=== PATIENT | male | born 1970 | race Caucasian/White ===

== ENCOUNTER 2021-12-27 22:54 | Inpatient (IN) ==
[2021-12-27] MEDS ORDERED: Tranexamic Acid 1,000 MG, Syringe CATH TIP 1 EACH in Water for inj. (sterile) 10 ML NS ONE (23:08)
[2021-12-27] MEDS ORDERED: Oxymetazoline Nasal SPRAY BOTTLE 15ML NS ONE (23:08)
[2021-12-27 23:53] LABS: Basophils # 0.1 K/mcL (0.0-0.2); Basophils % 0.5 %; Eosinophils # 0.1 K/mcL (0.0-0.6); Eosinophils % 0.5 %; Hematocrit 36.6 % (37.5-50.1); Immature Granulocytes % 0.4 % (0-4); Lymphocytes # 2.5 K/mcL (0.6-4.6); Lymphocytes % 22.4 %; Mean Corpuscular HGB Conc 34.2 g/dL (31.6-35.5); Mean Corpuscular Volume 93.6 fL (83.0-100.0); Mean Platelet Volume 10.7 fL (9.4-12.4); Monocytes # 0.9 K/mcL (0.0-1.3); Monocytes % 7.9 %; Neutrophils # 7.5 K/mcL (1.6-8.9); Platelet Count 210 K/mcL (140-400); Red Blood Count 3.91 M/mcL (4.19-5.50); Red Cell Distribution Width 13.3 % (11.5-14.5); Segmented Neutrophils % 68.3 %
[2021-12-28 00:01] LABS: Hemoglobin 12.5 g/dL (12.9-16.9)
[2021-12-28] MEDS ORDERED: Morphine Sulfate 2 MG/ML SYRINGE IVP ONE (00:10)
[2021-12-28] MEDS ORDERED: Oxymetazoline Nasal SPRAY BOTTLE 15ML NS ONE (00:57)
[2021-12-28] MEDS ORDERED: EPINEPHrine 1 MG/ML VIAL ONE ×2 (00:57→01:37)
[2021-12-28] MEDS ORDERED: *HR* Succinylcholine 200 MG/10 ML VIAL IVP ONE ×2 (00:59→02:56)
[2021-12-28] MEDS ORDERED: *HR* Propofol 200 MG/20 ML VIAL IVP ONE ×3 (00:59→04:14)
[2021-12-28] MEDS ORDERED: Lidocaine -MPF 2% 2 ML VIAL ONE (01:00)
[2021-12-28] MEDS ORDERED: *HR* Meperidine 25 MG/ML SYRINGE IVP PRN (01:02)
[2021-12-28] MEDS ORDERED: Albuterol 2.5 MG/3 ML NEBULIZER IH PRN (01:02)
[2021-12-28] MEDS ORDERED: *HR* FentaNYL (PF) 100 MCG/2 ML VIAL IVP PRN (01:02)
[2021-12-28] MEDS ORDERED: Lidocaine -MPF 4% 5 ML AMPUL ONE (01:02)
[2021-12-28] MEDS ORDERED: Ipratropium Neb 0.5 MG NEBULIZER IH PRN (01:02)
[2021-12-28] MEDS ORDERED: Ondansetron 4 MG/2 ML VIAL IVP PRN (01:02)
[2021-12-28] MEDS ORDERED: Racepinephrine Neb 0.5 ML VIAL IH PRN (01:02)
[2021-12-28] MEDS ORDERED: *HR* Labetalol 20 MG/4 ML SYRINGE IVP PRN (01:02)
[2021-12-28] MEDS ORDERED: Promethazine 6.25 MG in Water for inj. (sterile) 20 ML IVPB PRN (01:02)
[2021-12-28] MEDS ORDERED: *HR* OxyCODONE Immed Rel 5 MG TABLET PO PRN (01:02)
[2021-12-28] MEDS ORDERED: Famotidine 20 MG/2 ML VIAL ONE (01:16)
[2021-12-28] MEDS ORDERED: Ondansetron 4 MG/2 ML VIAL ONE (01:17)
[2021-12-28] MEDS ORDERED: *HR* Rocuronium Bromide 50 MG/5 ML VIAL ONE ×2 (01:48→02:58)
[2021-12-28] MEDS ORDERED: Sugammadex Sodium 200 MG/2 ML VIAL IV ONE ×2 (02:33→02:43)
[2021-12-28] MEDS ORDERED: Albumin Human 5% 12.5 GM/250 ML IV.SOLN ONE (03:17)
[2021-12-28 03:52] LABS: Basophils % 0.3 %; Eosinophils % 0.2 %; Hematocrit 31.7 % (37.5-50.1); Immature Granulocytes % 0.4 % (0-4); Lymphocytes # 1.2 K/mcL (0.6-4.6); Lymphocytes % 13.8 %; Mean Corpuscular HGB Conc 33.4 g/dL (31.6-35.5); Mean Corpuscular Hemoglobin 32.4 pg (28.0-33.3); Mean Corpuscular Volume 96.9 fL (83.0-100.0); Mean Platelet Volume 11.2 fL (9.4-12.4); Monocytes # 0.4 K/mcL (0.0-1.3); Monocytes % 4.9 %; Neutrophils # 7.2 K/mcL (1.6-8.9); Platelet Count 184 K/mcL (140-400); Red Blood Count 3.27 M/mcL (4.19-5.50); Red Cell Distribution Width 14.6 % (11.5-14.5); Segmented Neutrophils % 80.4 %; White Blood Count 8.9 K/mcL (4.3-11.1)
[2021-12-28 03:56] LABS: Hemoglobin 10.6 g/dL (12.9-16.9)
[2021-12-28] MEDS ORDERED: *HR* Midazolam HCl 2 MG/2 ML VIAL ONE (03:56)
[2021-12-28] MEDS ORDERED: Ketamine HCL *QUVA* 50mg (1mL) SYRINGE ONE (04:15)
[2021-12-28] MEDS ORDERED: *HR* Cisatracurium 10 MG/5 ML VIAL IV ONE (04:16)
[2021-12-28] MEDS ORDERED: Artificial Tears SOLN 15 ML BOTTLE BOTH EYES PRN (05:20)
[2021-12-28] MEDS ORDERED: Ibuprofen 400 MG TABLET PO PRN (05:21)
[2021-12-28] MEDS ORDERED: Acetaminophen 325 MG TABLET PO PRN (05:21)
[2021-12-28] MEDS ORDERED: Dexmedetomidine HCl 400 MCG/100 ML MLS IVC ONE (05:29)
[2021-12-28] MEDS: Dexmedetomidine HCl 400 MCG/100 ML MLS IVC SCH ×6 (05:32→23:16)
[2021-12-28] MEDS: Ringers Solution, Lactated 1,000 ML IVC SCH ×2 (05:32→18:12)
[2021-12-28 05:48] LABS: ABG Base Excess 0 mEq/L (-2 to 3); ABG HCO3 26 mEq/L (21-27); ABG Oxygen Saturation 96 % (95-98); ABG PCO2 48 mmHg (35-45); ABG PH 7.34 pH Units (7.32-7.45); ABG PO2 90 mmHg (85-104); ABG TCO2 27 mEq/L (20-26); Blood Gas Modality ASSIST CONTROL; Blood Gas VT 520 cc
[2021-12-28] MEDS ORDERED: Naloxone 0.4 MG/ML INJ IVP PRN (06:20)
[2021-12-28] MEDS: FentaNYL (PF) 1,000 MCG/100 ML IV.SOLN IVC SCH (06:41)
[2021-12-28] MEDS: Chlorhexidine Rinse 15 ML MOUTHWASH MM SCH ×2 (08:19→20:49)
[2021-12-28] MEDS: Artificial Tears SOLN 15 ML BOTTLE BOTH EYES SCH ×4 (08:19→20:52)
[2021-12-28] MEDS: Pantoprazole 40 MG VIAL IVP SCH (08:19)
[2021-12-28 09:28] LABS: Hematocrit 28.9 % (37.5-50.1); Hemoglobin 9.8 g/dL (12.9-16.9)
[2021-12-28] MEDS: Ampicillin/Sulbactam 3,000 MG in 0.9 % Sodium Chloride Mini Bag 100 ML IVPB SCH ×2 (11:36→18:11)
[2021-12-28 14:14] LABS: Hematocrit 27.7 % (37.5-50.1); Hemoglobin 9.4 g/dL (12.9-16.9)
[2021-12-28 19:22] LABS: Hematocrit 27.4 % (37.5-50.1); Hemoglobin 9.1 g/dL (12.9-16.9)
[2021-12-29] MEDS: Ampicillin/Sulbactam 3,000 MG in 0.9 % Sodium Chloride Mini Bag 100 ML IVPB SCH ×4 (00:01→18:01)
[2021-12-29] MEDS: Artificial Tears SOLN 15 ML BOTTLE BOTH EYES SCH ×4 (00:18→11:23)
[2021-12-29] MEDS: Dexmedetomidine HCl 400 MCG/100 ML MLS IVC SCH ×2 (03:43→08:15)
[2021-12-29 04:16] LABS: Blood Gas VT 520 cc; Mixed Venous Blood pCO2 44 mmHg (44-46); Mixed Venous Blood pH 7.38 pH Units (7.34-7.36); Mixed Venous Blood pO2 25 mmHg (35-45)
[2021-12-29] MEDS: Ringers Solution, Lactated 1,000 ML IVC SCH (06:31)
[2021-12-29 07:39] LABS: Immature Granulocytes % 0.6 % (0-4)
[2021-12-29 07:41] LABS: BUN/Creatinine Ratio 21 (6-26); Blood Urea Nitrogen 20 mg/dL (6-20); Calcium 8.4 mg/dL (8.6-10.3); Carbon Dioxide 28 mEq/L (23-29); Chloride 106 mEq/L (98-107); Glucose 147 mg/dL (70-105); Hemoglobin 8.5 g/dL (12.9-16.9); Immature Platelets 7.4 % (1.1-6.1); Lymphocytes # 1.2 K/mcL (0.6-4.6); Lymphocytes % 13.8 %; Mean Corpuscular Hemoglobin 33.2 pg (28.0-33.3); Mean Corpuscular Volume 97.7 fL (83.0-100.0); Mean Platelet Volume 11.4 fL (9.4-12.4); Monocytes # 0.6 K/mcL (0.0-1.3); Monocytes % 7.1 %; Neutrophils # 6.8 K/mcL (1.6-8.9); Osmolality,Calculated 295 (280-300); Platelet Count 145 K/mcL (140-400); Potassium 4.2 mEq/L (3.5-5.1); Red Blood Count 2.56 M/mcL (4.19-5.50); Red Cell Distribution Width 13.6 % (11.5-14.5); Segmented Neutrophils % 78.5 %; Sodium 140 mEq/L (136-145); White Blood Count 8.7 K/mcL (4.3-11.1); eGFR For African Americans > 60 (> 60); eGFR For Non-African Americans > 60 (> 60)
[2021-12-29 07:49] LABS: INR 1.1; Prothrombin Time 11.9 Seconds (9.4-12.1)
[2021-12-29] MEDS: Chlorhexidine Rinse 15 ML MOUTHWASH MM SCH (07:58)
[2021-12-29] MEDS: Pantoprazole 40 MG VIAL IVP SCH (07:58)
[2021-12-29] MEDS: FentaNYL (PF) 1,000 MCG/100 ML IV.SOLN IVC SCH (09:10)
[2021-12-29] MEDS ORDERED: Ibuprofen 400 MG TABLET PO PRN (15:30)
[2021-12-29] MEDS ORDERED: Acetaminophen 325 MG TABLET PO PRN (15:30)
[2021-12-29] MEDS ORDERED: Naloxone 0.4 MG/ML INJ IVP PRN (15:30)
[2021-12-29 21:35] LABS: Hematocrit 27.7 % (37.5-50.1); Hemoglobin 9.4 g/dL (12.9-16.9)
[2021-12-30] MEDS: Ampicillin/Sulbactam 3,000 MG in 0.9 % Sodium Chloride Mini Bag 100 ML IVPB SCH ×2 (00:04→06:20)
[2021-12-30 02:16] LABS: Hematocrit 24.8 % (37.5-50.1); Hemoglobin 8.5 g/dL (12.9-16.9)
[2021-12-30 02:17] LABS: Basophils % 0.2 %; Eosinophils % 0.1 %; Hematocrit 25.6 % (37.5-50.1); Hemoglobin 8.6 g/dL (12.9-16.9); Immature Granulocytes % 0.8 % (0-4); Lymphocytes # 2.3 K/mcL (0.6-4.6); Lymphocytes % 23.5 %; Mean Corpuscular HGB Conc 33.6 g/dL (31.6-35.5); Mean Corpuscular Hemoglobin 32.5 pg (28.0-33.3); Mean Corpuscular Volume 96.6 fL (83.0-100.0); Monocytes # 0.8 K/mcL (0.0-1.3); Monocytes % 8.2 %; Neutrophils # 6.6 K/mcL (1.6-8.9); Nucleated Red Blood Cells 0.3 /100 WBC (0); Platelet Count 160 K/mcL (140-400); Red Blood Count 2.65 M/mcL (4.19-5.50); Red Cell Distribution Width 13.5 % (11.5-14.5); Segmented Neutrophils % 67.2 %; White Blood Count 9.8 K/mcL (4.3-11.1)
[2021-12-30 02:54] LABS: BUN/Creatinine Ratio 17 (6-26); Blood Urea Nitrogen 15 mg/dL (6-20); Calcium 8.4 mg/dL (8.6-10.3); Carbon Dioxide 26 mEq/L (23-29); Chloride 105 mEq/L (98-107); Glucose 97 mg/dL (70-105); Osmolality,Calculated 289 (280-300); Sodium 139 mEq/L (136-145); eGFR For African Americans > 60 (> 60); eGFR For Non-African Americans > 60 (> 60)
[2021-12-30 08:54] LABS: Hematocrit 24.8 % (37.5-50.1); Hemoglobin 8.4 g/dL (12.9-16.9)
[2021-12-30] MEDS ORDERED: Pantoprazole 40 MG VIAL IVP SCH (09:00)
[2021-12-30] MEDS ORDERED: 0.9 % Sodium Chloride 500 ML ONE ×2 (10:58→11:54)
[2021-12-30] MEDS ORDERED: Heparin 1,000 UNITS/500 mL 500 ML ONE ×3 (10:58→12:47)
[2021-12-30] MEDS ORDERED: Lidocaine/EPI 1:100k 1% 50 ML VIAL ONE (10:58)
[2021-12-30] MEDS: Saline Nasal Spray 44 ML BOTTLE NS SCH ×3 (11:19→20:51)
[2021-12-30] MEDS ORDERED: *HR* FentaNYL (PF) 100 MCG/2 ML VIAL IVP ONE (11:48)
[2021-12-30] MEDS ORDERED: *HR* FentaNYL (PF) 100 MCG/2 ML VIAL ONE (11:50)
[2021-12-30] MEDS ORDERED: Isovue-300 50ML VIAL IVP ONE ×2 (13:13→13:16)
[2021-12-30 14:42] LABS: Hematocrit 24.9 % (37.5-50.1); Hemoglobin 8.3 g/dL (12.9-16.9)
[2021-12-30] MEDS ORDERED: amLODIPine 5 MG TABLET PO ONE (16:18)
[2021-12-30] MEDS: *HR* Labetalol 20 MG/4 ML SYRINGE IVP PRN (16:27)
[2021-12-30] MEDS ORDERED: 0.9 % Sodium Chloride 250 ML ONE (16:50)
[2021-12-30 21:26] LABS: Hematocrit 24.8 % (37.5-50.1); Hemoglobin 8.4 g/dL (12.9-16.9)
[2021-12-31] MEDS: *HR* Labetalol 20 MG/4 ML SYRINGE IVP PRN (00:46)
[2021-12-31 01:16] LABS: Basophils % 0.4 %; Eosinophils % 0.4 %; Hematocrit 26.1 % (37.5-50.1); Hemoglobin 8.8 g/dL (12.9-16.9); Immature Granulocytes % 1.2 % (0-4); Lymphocytes # 1.8 K/mcL (0.6-4.6); Lymphocytes % 21.5 %; Mean Corpuscular HGB Conc 33.7 g/dL (31.6-35.5); Mean Corpuscular Volume 94.9 fL (83.0-100.0); Mean Platelet Volume 10.5 fL (9.4-12.4); Monocytes # 0.9 K/mcL (0.0-1.3); Monocytes % 10.4 %; Neutrophils # 5.4 K/mcL (1.6-8.9); Nucleated Red Blood Cells 0.9 /100 WBC (0); Platelet Count 187 K/mcL (140-400); Red Blood Count 2.75 M/mcL (4.19-5.50); Red Cell Distribution Width 14.7 % (11.5-14.5); Segmented Neutrophils % 66.1 %; White Blood Count 8.2 K/mcL (4.3-11.1)
[2021-12-31 01:35] LABS: BUN/Creatinine Ratio 16 (6-26); Blood Urea Nitrogen 13 mg/dL (6-20); Calcium 8.1 mg/dL (8.6-10.3); Carbon Dioxide 26 mEq/L (23-29); Chloride 102 mEq/L (98-107); Glucose 135 mg/dL (70-105); Osmolality,Calculated 284 (280-300); Potassium 3.2 mEq/L (3.5-5.1); Sodium 136 mEq/L (136-145); eGFR For African Americans > 60 (> 60); eGFR For Non-African Americans > 60 (> 60)
[2021-12-31] MEDS: Saline Nasal Spray 44 ML BOTTLE NS SCH ×5 (08:22→20:30)
[2021-12-31] MEDS: amLODIPine 5 MG TABLET PO SCH (09:45)
[2021-12-31 16:23] LABS: Hematocrit 24.3 % (37.5-50.1); Hemoglobin 8.3 g/dL (12.9-16.9)
[2021-12-31] MEDS: lisinopriL 20 MG TABLET PO SCH (17:05)
[2022-01-01 08:55] LABS: Hematocrit 26.1 % (37.5-50.1); Hemoglobin 8.6 g/dL (12.9-16.9)
[2022-01-01] MEDS: amLODIPine 5 MG TABLET PO SCH (09:08)
[2022-01-01] MEDS: Saline Nasal Spray 44 ML BOTTLE NS SCH ×4 (09:08→20:34)
[2022-01-01 09:13] LABS: BUN/Creatinine Ratio 9 (6-26); Blood Urea Nitrogen 7 mg/dL (6-20); Calcium 8.6 mg/dL (8.6-10.3); Carbon Dioxide 27 mEq/L (23-29); Chloride 105 mEq/L (98-107); Glucose 105 mg/dL (70-105); Osmolality,Calculated 284 (280-300); Potassium 3.4 mEq/L (3.5-5.1); Sodium 138 mEq/L (136-145); eGFR For African Americans > 60 (> 60); eGFR For Non-African Americans > 60 (> 60)
[2022-01-01] MEDS: lisinopriL 20 MG TABLET PO SCH (17:30)
[2022-01-01 18:45] LABS: Hematocrit 27.1 % (37.5-50.1); Hemoglobin 9.1 g/dL (12.9-16.9)
[2022-01-02 05:19] LABS: Basophils % 0.4 %; Eosinophils % 0.6 %; Hematocrit 24.2 % (37.5-50.1); Lymphocytes # 1.9 K/mcL (0.6-4.6); Lymphocytes % 27.3 %; Mean Corpuscular HGB Conc 33.1 g/dL (31.6-35.5); Mean Corpuscular Hemoglobin 31.6 pg (28.0-33.3); Mean Corpuscular Volume 95.7 fL (83.0-100.0); Mean Platelet Volume 10.7 fL (9.4-12.4); Monocytes # 0.8 K/mcL (0.0-1.3); Monocytes % 11.8 %; Nucleated Red Blood Cells 0.4 /100 WBC (0); Platelet Count 246 K/mcL (140-400); Red Blood Count 2.53 M/mcL (4.19-5.50); Segmented Neutrophils % 57.9 %; White Blood Count 6.9 K/mcL (4.3-11.1)
[2022-01-02 05:36] LABS: BUN/Creatinine Ratio 8 (6-26); Blood Urea Nitrogen 7 mg/dL (6-20); Calcium 8.6 mg/dL (8.6-10.3); Carbon Dioxide 26 mEq/L (23-29); Chloride 107 mEq/L (98-107); Glucose 99 mg/dL (70-105); Osmolality,Calculated 286 (280-300); Sodium 139 mEq/L (136-145); eGFR For African Americans > 60 (> 60); eGFR For Non-African Americans > 60 (> 60)
[2022-01-02 07:12] VITALS: TEMP 99
[2022-01-02] MEDS: amLODIPine 5 MG TABLET PO SCH (07:55)
[2022-01-02] MEDS: Saline Nasal Spray 44 ML BOTTLE NS SCH ×2 (07:56→13:16)
[2022-01-02 11:40] VITALS: BP 106/75; PULSE 94; O2SAT 93
== END 2022-01-02 15:00 | disposition home or self-care (01) | DRG 144 ==
LOC: EMEROOARM 22:54 → 3ANU 22:54 → ICNU 12-28 04:52 → SUATTDRO 12-28 11:23 → 2ANU 12-29 22:42
PROVIDERS: ADMIT Otolaryngology; ATTEND Family Medicine